=== PATIENT | female | born 1995 | race Caucasian/White ===

== ENCOUNTER 2022-03-14 17:27 | Emergency (ER) | payer OTHER ==
[2022-03-14] MEDS ORDERED: IBUPROFEN 600 MG TAB PO STA (19:13)
--- NOTE | 2022-03-14 19:23 | ED ---
General Adult HPI - General Source: patient, RN notes reviewed, old records reviewed Mode of arrival: ambulatory Limitations: no limitations <Delfino Bocanegra - Last Filed: 03/14/22 20:54> <Carlos Alberto Vasquez - Last Filed: 03/15/22 01:36> - General Chief complaint: Psychiatric Symptoms Stated complaint: Mental health Time Seen by Provider: 03/14/22 19:00 - History of Present Illness Initial comments: This is a 26-year-old female who has a past medical history significant for multiple suicide attempts. Patient states that she has been diagnosed with borderline personality disorder. 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 Patient states she's had taken pills multiple times and once tried to hang herself in the past. Patient does not want to get back to making an attempt. Patient denies any one single thing that pushed her over the edge recently she states is just as dresses all added together. Patient denies any drug use or alcohol use patient denies any physical complaints today except for some mild lower back pain. (Delfino Bocanegra) - Related Data Allergies Allergy/AdvReac Type Severity Reaction Status Date / Time No Known Allergies Allergy Verified 03/14/22 21:15 Review of Systems ROS Other: All systems not noted in ROS Statement are negative. <Delfino Bocanegra - Last Filed: 03/14/22 20:54> ROS Other: All systems not noted in ROS Statement are negative. <Carlos Alberto Vasquez - Last Filed: 03/15/22 01:36> ROS Statement: Those systems with pertinent positive or pertinent negative responses have been documented in the HPI. Past Medical History Past Medical History: No Reported History History of Any Multi-Drug Resistant Organisms: None Reported Past Surgical History: No Surgical Hx Reported Past Psychological History: ADD/ADHD, Panic Disorder Smoking Status: Current every day smoker Past Alcohol Use History: Occasional Past Drug Use History: Marijuana <Delfino Bocanegra - Last Filed: 03/14/22 20:54> General Exam Limitations: no limitations <Delfino Bocanegra - Last Filed: 03/14/22 20:54> - General Exam Comments Initial Comments: GENERAL: Patient is well-developed and well-nourished. Patient is nontoxic and well- hydrated and is in mild distress. ENT: Neck is soft and supple. No significant lymphadenopathy is noted. Oropharynx is clear. Moist mucous membranes. Neck has full range of motion without eliciting any pain. EYES: The sclera were anicteric and conjunctiva were pink and moist. Extraocular movements were intact and pupils were equal round and reactive to light. Eyelids were unremarkable. PULMONARY: Unlabored respirations. Good breath sounds bilaterally. No audible rales rhonchi or wheezing was noted. CARDIOVASCULAR: There is a regular rate and rhythm without any murmurs gallops or rubs. ABDOMEN: Soft and nontender with normal bowel sounds. SKIN: Patient has quite a few areas of excoriation on her face she states she picks at her face when she is extremely stressed NEUROLOGIC: Patient is alert and oriented x3. Cranial nerves II through XII are grossly intact. Motor and sensory are also intact. Normal speech, volume and content. Symmetrical smile. MUSCULOSKELETAL: Normal extremities with adequate strength and full range of motion. LYMPHATICS: No significant lymphadenopathy is noted PSYCHIATRIC: Patient states there on the verge of becoming suicidal though she is not currently. Patient states she cannot handle the stresses in her life currently (Delfino Bocanegra) Course Vital Signs 03/14/22 03/14/22 17:36 19:25 Temperature 98.3 F 98.2 F Pulse Rate 89 89 Respiratory 20 17 Rate Blood Pressure 114/79 115/72 O2 Sat by Pulse 98 95 Oximetry Medical Decision Making <Delfino Bocanegra - Last Filed: 03/14/22 20:54> - Medical Decision Making Dr. Means taking over care of this patient at 9 PM (Delfino Bocanegra) Disposition <Delfino Bocanegra - Last Filed: 03/14/22 20:54> Is patient prescribed a controlled substance at d/c from ED?: No <Carlos Alberto Vasquez - Last Filed: 03/15/22 01:36> Clinical Impression: Mood disorder Disposition: HOME SELF-CARE Condition: Good Instructions (If sedation given, give patient instructions): Mood Disorders (ED) Referrals: Ty Castañeda [Primary Care Provider] - 1-2 days
[2022-03-15 02:47] VITALS: BP 112/73; PULSE 72; RESP 14; TEMP 97.7
== END 2022-03-15 02:13 | disposition home or self-care (01) ==
LOC: EC 17:27
DX: F39 Unspecified mood [affective] disorder (principal); F90.9 Attention-deficit hyperactivity disorder, unspecified type; F17.200 Nicotine dependence, unspecified, uncomplicated; F12.90 Cannabis use, unspecified, uncomplicated
CPT/HCPCS: 82075; 99284

== ENCOUNTER 2022-06-26 09:14 | Emergency (ER) | payer OTHER ==
[2022-06-26 09:18] VITALS: BP 116/87; PULSE 84; RESP 20; TEMP 98
== END 2022-06-26 10:34 | disposition left against medical advice (07) ==
LOC: EC 09:14
DX: Z53.21 Procedure and treatment not carried out due to patient leaving prior to being seen by health care provider (principal)
CPT/HCPCS: 87635; 99499

== ENCOUNTER 2022-09-20 17:27 | Inpatient (IN) | payer OTHER ==
--- NOTE | 2022-09-20 19:12 | ED ---
General Adult HPI <ChristinaCarlos Alberto - Last Filed: 09/21/22 02:18> - General Source: patient, RN notes reviewed, old records reviewed Mode of arrival: ambulatory Limitations: no limitations <Adria Lopez - Last Filed: 09/21/22 23:33> - General Chief complaint: Psychiatric Symptoms Stated complaint: mental health Time Seen by Provider: 09/20/22 18:05 - History of Present Illness Initial comments: Patient is a 26 year old female who presents emergency department complaining of suicidal ideations, plan. She does have a history depression. Is on bupropion. States this is been a recurrent issue but over the last 1-2 weeks it is gotten worse. Denies any worsening stressors. Does endorse suicidal ideations, as well as a plan of possibly overdosing. Denies any attempts. Has been self harming. Has multiple superficial lacerations over the arms and legs. She is up-to-date on tetanus. Denies homicidal ideations, attempts, plans. Denies visual or auditory hallucinations. Denies chest pain, abdominal pain, nausea, vomiting. Denies any shortness breath. His no other acute complaints at this time. Patient presents seeking psychiatric evaluation at this time. (Adria Lopez) - Related Data Home Medications Medication Instructions Recorded Confirmed Dextroamphetamine/Amphetamine 10 mg PO DAILY@1030 03/14/22 06/26/22 [Adderall] Dextroamphetamine/Amphetamine 15 mg PO DAILY@0500 03/14/22 06/26/22 [Adderall] busPIRone HCl [Buspar] 10 mg PO BID 06/26/22 06/26/22 Previous Rx's Medication Instructions Recorded Albuterol Sulfate [Albuterol 1 puff PO Q4-6H #8.5 gm 06/26/22 Sulfate Hfa] Azithromycin [Zithromax] 250 mg PO DIRECTED 5 Days #6 tab 06/26/22 CHLORPHEN-HYDROcod 8-10mg/5ml 5 ml PO Q12HR PRN 3 Days #30 ml 06/26/22 [Tussionex] Allergies Allergy/AdvReac Type Severity Reaction Status Date / Time No Known Allergies Allergy Verified 09/21/22 06:06 Review of Systems ROS Other: All systems not noted in ROS Statement are negative. <Carlos Alberto Vasquez - Last Filed: 09/21/22 02:18> ROS Other: All systems not noted in ROS Statement are negative. <Adria Lopez - Last Filed: 09/21/22 23:33> ROS Statement: Those systems with pertinent positive or pertinent negative responses have been documented in the HPI. Review of Systems: CONST: Denies fever EYES: Denies blurry vision ENT: Denies nasal congestion C/V: Denies Chest pain RESP: Denies shortness of breath GI: Denies abdominal pain : Denies dysuria SKIN: Denies rash. MSK: Denies joint pain. NEURO: Denies headache PSYCH: Denies homicidal ideations/plans/attempts. Denies visual or auditory hallucinations. She endorses suicidal ideation, plan. Denies attempt. Endorses self-harm. (Adria Lopez) Past Medical History Past Medical History: No Reported History History of Any Multi-Drug Resistant Organisms: None Reported Past Surgical History: No Surgical Hx Reported Past Psychological History: ADD/ADHD, Panic Disorder Smoking Status: Current every day smoker Past Alcohol Use History: Occasional Past Drug Use History: Marijuana <Adria Lopez - Last Filed: 09/21/22 23:33> General Exam Limitations: no limitations <Adria Lopez - Last Filed: 09/21/22 23:33> - General Exam Comments Initial Comments: General: Appears in no acute distress. HEAD: Normal with no signs of head trauma. EYES: PERRLA, EOMI, conjunctiva normal, no discharge. ENT: Hearing grossly intact, normal oropharynx. RESPIRATORY: Clear breath sounds bilaterally. No wheezes, rales, or rhonchi. C/V: Regular rate and rhythm. S1 and S2 auscultated, no edema, peripheral pulses 2+ and intact throughout ABD: Abd is soft, nontender, nondistended EXT: Normal range of motion, no obvious deformity SKIN: No rashes or lesions observed on exposed skin. NEURO: Alert and oriented 4. (Adria Lopez) Course Vital Signs 09/20/22 09/21/22 09/21/22 17:39 00:05 02:40 Temperature 98.8 F 98.6 F Pulse Rate 108 H 96 76 Respiratory 18 16 18 Rate Blood Pressure 139/83 100/63 O2 Sat by Pulse 97 100 100 Oximetry Medical Decision Making <Adria Lopez - Last Filed: 11/10/22 23:33> - Medical Decision Making Based on the patient's presentation and physical exam, I do believe the patient requires psychiatric evaluation. Sitter was ordered. Suicide precautions were ordered. She was placed in green scrubs. BAT is 0. UDS is pending. Vital signs within acceptable limits. She is up-to-date on her tetanus. Patient is medically cleared for evaluation by psychiatry. EPS is notified. Disposition is pending psychiatric evaluation. Patient was evaluated by EPS eventually admitted to inpatient psychiatry. (Adria Lopez) - Lab Data Lab Results 09/21/22 09/21/22 09/21/22 Range/Units 00:05 00:05 00:05 Urine Color Yellow Urine Appearance Cloudy H (Clear) Urine pH 6.0 (5.0-8.0) Ur Specific [place] 1.030 (1.001-1.035) Urine Protein 1+ H (Negative) Urine Glucose (UA) Negative (Negative) Urine Ketones 1+ H (Negative) Urine Blood Negative (Negative) Urine Nitrite Positive H (Negative) Urine Bilirubin Negative (Negative) Urine Urobilinogen <2.0 (<2.0) mg/dL Ur Leukocyte Esterase Negative (Negative) Urine RBC 3 (0-5) /hpf Urine WBC 3 (0-5) /hpf Ur Squamous Epith Cells 24 H (0-4) /hpf Urine Bacteria Moderate H (None) /hpf Urine Mucus Many H (None) /hpf Urine HCG, Qual Not Detected (Not Detectd) Urine Opiates Screen Not Detected (NotDetected) Ur Oxycodone Screen Not Detected (NotDetected) Urine Methadone Screen Not Detected (NotDetected) Ur Propoxyphene Screen Not Detected (NotDetected) Ur Barbiturates Screen Not Detected (NotDetected) U Tricyclic Antidepress Not Detected (NotDetected) Ur Phencyclidine Scrn Not Detected (NotDetected) Ur Amphetamines Screen Not Detected (NotDetected) U Methamphetamines Scrn Not Detected (NotDetected) U Benzodiazepines Scrn Not Detected (NotDetected) Urine Cocaine Screen Not Detected (NotDetected) U Marijuana (THC) Screen Detected H (NotDetected) Coronavirus (PCR) (Not Detectd) 09/21/22 Range/Units 02:40 Urine Color Urine Appearance (Clear) Urine pH (5.0-8.0) Ur Specific [place] (1.001-1.035) Urine Protein (Negative) Urine Glucose (UA) (Negative) Urine Ketones (Negative) Urine Blood (Negative) Urine Nitrite (Negative) Urine Bilirubin (Negative) Urine Urobilinogen (<2.0) mg/dL Ur Leukocyte Esterase (Negative) Urine RBC (0-5) /hpf Urine WBC (0-5) /hpf Ur Squamous Epith Cells (0-4) /hpf Urine Bacteria (None) /hpf Urine Mucus (None) /hpf Urine HCG, Qual (Not Detectd) Urine Opiates Screen (NotDetected) Ur Oxycodone Screen (NotDetected) Urine Methadone Screen (NotDetected) Ur Propoxyphene Screen (NotDetected) Ur Barbiturates Screen (NotDetected) U Tricyclic Antidepress (NotDetected) Ur Phencyclidine Scrn (NotDetected) Ur Amphetamines Screen (NotDetected) U Methamphetamines Scrn (NotDetected) U Benzodiazepines Scrn (NotDetected) Urine Cocaine Screen (NotDetected) U Marijuana (THC) Screen (NotDetected) Coronavirus (PCR) Not Detected (Not Detectd) Disposition Is patient prescribed a controlled substance at d/c from ED?: No <Carlos Alberto Vasquez - Last Filed: 09/21/22 02:18> <Adria Lopez - Last Filed: 09/21/22 23:33> Clinical Impression: Mood disorder Disposition: ADMITTED IP TO THIS [facility] Condition: Fair
[2022-09-21 01:19] LABS: Amphetamine Screen,Urine Not Detected (NotDetected); Barbiturate Screen,Urine Not Detected (NotDetected); Benzodiazepines Screen,Urine Not Detected (NotDetected); Cocaine Screen,Urine Not Detected (NotDetected); Methadone Screen, Urine Not Detected (NotDetected); Opiate Screen,Urine Not Detected (NotDetected); Oxycodone Screen, Urine Not Detected (NotDetected); Phencyclidine Screen,Urine Not Detected (NotDetected); Tricyclic Antidepressant,Urine Not Detected (NotDetected); Urn Cannabinoid Scrn Detected (NotDetected)
[2022-09-21] MEDS ORDERED: MAGNESIUM HYDROXIDE 2,400 MG/10 ML CUP PO PRN (03:49)
[2022-09-21] MEDS ORDERED: MAG HYDROX/AL HYDROX/SIMETH 30 ML CUP PO PRN (03:49)
[2022-09-21] MEDS ORDERED: ACETAMINOPHEN TAB 325 MG TAB PO PRN (03:49)
[2022-09-21] MEDS ORDERED: LORazepam 1 MG TAB PO PRN (03:49)
[2022-09-21] MEDS ORDERED: HALOPERIDOL LACTATE 5 MG/ML 1 ML VIAL IM PRN (03:49)
[2022-09-21] MEDS ORDERED: ALBUTEROL HFA INHALER INHALATION PRN (03:52)
[2022-09-21 04:09] LABS: Appearance,Urine Cloudy (Clear); Bacteria,Urine Moderate /hpf; Bilirubin,Urine Negative (Negative); Blood,Urine Negative (Negative); Color,Urine Yellow; Glucose,Urine (UA) Negative (Negative); Ketones,Urine 1+ (Negative); Leukocyte Esterase,Urine Negative (Negative); Mucus,Urine Many /hpf; Nitrite,Urine Positive (Negative); Protein,Urine 1+ (Negative); RBC,Urine 3 /hpf (0-5); Squamous Epithelial Cell,Urine 24 /hpf (0-4); Urobilinogen,Urine <2.0 mg/dL (<2.0); WBC,Urine 3 /hpf (0-5)
[2022-09-21] MEDS ORDERED: LORazepam 1 MG/0.5 ML VIAL IM PRN (06:01)
[2022-09-21] MEDS ORDERED: haloperidoL 5 MG TAB PO PRN (06:02)
[2022-09-21] MEDS ORDERED: hydrOXYzine pamoate 25 MG CAP PO PRN (11:57)
[2022-09-21] MEDS: LITHIUM CARBONATE 300 MG CAP PO SCH ×2 (12:03→21:00)
[2022-09-21] MEDS: NICOTINE 7MG/24HR PATCH TRANSDERM SCH (12:04)
--- NOTE | 2022-09-21 12:37 | P.HP ---
Psychiatric H&P - . H&P Date: 09/21/22 History & Physical: Allergies Allergy/AdvReac Type Severity Reaction Status Date / Time No Known Allergies Allergy Verified 09/21/22 06:06 Vital Signs Temp 98.3 F 09/21/22 05:27 Pulse 74 09/21/22 05:27 Resp 18 09/21/22 05:27 BP 126/67 09/21/22 05:27 Pulse Ox 96 09/21/22 05:27 FiO2 Intake & Output 09/20/22 09/21/22 09/21/22 18:59 06:59 18:59 Weight 59.421 kg 58.06 kg Laboratory Last Values Urine Color Yellow 09/21/22 00:05 Urine Appearance Cloudy (Clear) H 09/21/22 00:05 Urine pH 6.0 (5.0-8.0) 09/21/22 00:05 Ur Specific [place] 1.030 (1.001-1.035) 09/21/22 00:05 Urine Protein 1+ (Negative) H 09/21/22 00:05 Urine Glucose (UA) Negative (Negative) 09/21/22 00:05 Urine Ketones 1+ (Negative) H 09/21/22 00:05 Urine Blood Negative (Negative) 09/21/22 00:05 Urine Nitrite Positive (Negative) H 09/21/22 00:05 Urine Bilirubin Negative (Negative) 09/21/22 00:05 Urine Urobilinogen <2.0 mg/dL (<2.0) 09/21/22 00:05 Ur Leukocyte Esterase Negative (Negative) 09/21/22 00:05 Urine RBC 3 /hpf (0-5) 09/21/22 00:05 Urine WBC 3 /hpf (0-5) 09/21/22 00:05 Ur Squamous Epith Cells 24 /hpf (0-4) H 09/21/22 00:05 Urine Bacteria Moderate /hpf (None) H 09/21/22 00:05 Urine Mucus Many /hpf (None) H 09/21/22 00:05 Urine HCG, Qual Not Detected (Not Detectd) 09/21/22 00:05 Urine Opiates Screen Not Detected (NotDetected) 09/21/22 00:05 Ur Oxycodone Screen Not Detected (NotDetected) 09/21/22 00:05 Urine Methadone Screen Not Detected (NotDetected) 09/21/22 00:05 Ur Propoxyphene Screen Not Detected (NotDetected) 09/21/22 00:05 Ur Barbiturates Screen Not Detected (NotDetected) 09/21/22 00:05 U Tricyclic Antidepress Not Detected (NotDetected) 09/21/22 00:05 Ur Phencyclidine Scrn Not Detected (NotDetected) 09/21/22 00:05 Ur Amphetamines Screen Not Detected (NotDetected) 09/21/22 00:05 U Methamphetamines Scrn Not Detected (NotDetected) 09/21/22 00:05 U Benzodiazepines Scrn Not Detected (NotDetected) 09/21/22 00:05 Urine Cocaine Screen Not Detected (NotDetected) 09/21/22 00:05 U Marijuana (THC) Screen Detected (NotDetected) H 09/21/22 00:05 Coronavirus (PCR) Not Detected (Not Detectd) 09/21/22 02:40 09/21/22 12:31 IDENTIFYING DATA: Patient is a 26-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 HPI: Patient presented to the hospital yesterday complaining of suicidal ideations with plans of possibly overdosing. Patient also claimed in the ER that she is going to press for the past 1 or 2 weeks and also endorsing significant stressors and having lacerations over her legs and also her arms and history of self harming. Patient's UDS positive for THC. Patient has been depressed for the past couple of weeks. She states that she "stopped existing" and described anhedonia, a motivation. She also describes poor energy. Claims that she is also feeling overwhelmed. States that she has a history of having mood swings and explained having "highs" and described manic like features where she has a lot of energy with decreased need for sleep and wanting to go out all the time. She states that she frequently then crashes into a depressed mood. She states that she has had some stressors since moving to [place] last October. Claims that she has been into a few bad relationships. Claims that she has been difficulty finding hours with her job and also poor finances. Claims that she has significant anxiety during the day. She says she is still having suicidal thoughts, no intent or plan. Describes not having any homicidal ideations. Claims that her sleep and appetite have been "on and off". At this time patient denies any auditory or visual hallucinations. Patient denies any current flight of ideas racing thoughts and increased in goal directed behavior. Patient admits to using cannabis heavy doses frequently/daily, cigarettes daily, alcohol, binge episodes at times on weekends. PAST PSYCHIATRIC HISTORY: Patient states that she has a history of bipolar disorder and borderline personality disorder. She also states that she does have a history of ADHD. And claims that she has been on different medications in the past including BuSpar, Wellbutrin, Adderall. She states that she has been hospitalized psychiatrically several times in the past approximately 14 or 15 times in different states. Patient denies any psychiatric outpatient follow- up. He claims that she has had several suicide attempts in the past however did not describe what she has done. PMH:denies ALLERGIES: as per EMR CHEMICAL DEPENDENCY HISTORY: as per HPI FAMILY PSYCHIATRIC/SUBSTANCE USE HISTORY: Claims that there is significant bipolar disorder in her family SOCIAL HISTORY: Patient was born and raised in [facility]. She states that she was "raised all over in a family". States that her parents currently live in [place]. She states that she moved to [place] about a year ago. Claims that she completed high school. Denies any legal history. Does not have any kids. Lives alone in a house. She works as a cleaning lady.. MENTAL STATUS EXAM: General Appearance: Patient appears to be then, has very short hair, glasses, acne, stated age is alert, directable, and attempts to cooperate. Patient appears to have poor hygiene and grooming. She has several abrasions and lacerations over her legs and her arms. Behavior: Patient is seated without any agitated behavior. Speech: Patient's speech is fluent and nonpressured. Mood/Affect: Patient reports their mood is depressed and anxious, affect is congruent and constricted. Suicidality/Homicidality: Patient denies having any homicidal ideation intent or plan. [Described having suicidal thoughts, no intent or plan. Perceptions: Patient denies any visual hallucinations and denies any auditory hallucinations Though content/process: There is no evidence of any delusional thought content and thought process is linear and goal-directed. Rambles at times. Memory and concentration: AOX3, grossly intact for the purposes of this session. Can spell "WORLD" backwards Judgment and insight: poor STRENGTHS/WEAKNESSES: strength is that patient is resilient. Weakness is that patient has poor judgment and is impulsive INTELLECT: average IMPRESSIONS: Bipolar disorder, current episode depressed Borderline personality disorder Cannabis use disorder, severe Alcohol use disorder mild Nicotine dependence PLAN: -Patient is admitted under voluntary status to [facility] for stabilization of psychiatric symptoms and safety. Patient has signed adult voluntary form and medication consent and is placed in patient's chart. -Medications : Will start patient on lithium 300 mg twice a day for mood stabilization/suicidal thoughts. Trazodone 50 mg daily at bedtime for mood/insomnia. Vistaril by mouth when necessary for anxiety. -Ativan and Haldol PRN for agitation/aggression -Patient was counselled on substance abuse and desired to cut back on use -Patient was informed of the risks, benefits and side effects of the medication and patient verbally consented to taking the medications. Patient signed med consent form and was placed in chart. -Internal Medicine consult to perform medical evaluation and physical. -NRT - nicotine patch -SW on board for discharge planning. Encourage patient to participate in groups to work on coping skills.
[2022-09-21] MEDS: traZODone HCL 50 MG TAB PO SCH (21:00)
[2022-09-22 07:59] LABS: Basophils % (A) 0 %; Eosinophils # (A) 0.2 k/uL (0-0.7); Eosinophils % (A) 3 %; HCT 42.7 % (34.0-46.0); HGB 14.4 gm/dL (11.4-16.0); Lymphocytes # (A) 2.2 k/uL (1.0-4.8); Lymphocytes % (A) 28 %; MCH 31.5 pg (25.0-35.0); MCHC 33.6 g/dL (31.0-37.0); MCV 93.6 fL (80.0-100.0); Mean Platelet Volume 7.6; Monocytes # (A) 0.3 k/uL (0-1.0); Monocytes % (A) 4 %; Neutrophils # (A) 4.8 k/uL (1.3-7.7); Neutrophils % (A) 63 %; Platelet Count 337 k/uL (150-450); RBC 4.56 m/uL (3.80-5.40); RDW 12.7 % (11.5-15.5); WBC 7.7 k/uL (3.8-10.6)
[2022-09-22 08:10] LABS: ALT 21 U/L (4-34); AST 18 U/L (14-36); African American GFR (CKD) >90 (>60 ml/min/1.73 sqM); Albumin 4.7 g/dL (3.5-5.0); Alkaline Phosphatase 71 U/L (38-126); Anion Gap 9 mmol/L; Bilirubin, Delta 0.3 mg/dL (0.0-0.2); Bilirubin,Unconjugated 0.4 mg/dL (0.0-1.1); Blood Urea Nitrogen 9 mg/dL (7-17); Calcium 9.6 mg/dL (8.4-10.2); Carbon Dioxide 26 mmol/L (22-30); Chloride 104 mmol/L (98-107); Glucose 78 mg/dL (74-99); Non-African American GFR(CKD) >90 (>60 ml/min/1.73 sqM); Potassium 4.6 mmol/L (3.5-5.1); Sodium 139 mmol/L (137-145); Total Bilirubin 0.7 mg/dL (0.2-1.3); Total Protein 7.4 g/dL (6.3-8.2)
[2022-09-22] MEDS: NICOTINE 7MG/24HR PATCH TRANSDERM SCH (08:41)
[2022-09-22] MEDS: LITHIUM CARBONATE 300 MG CAP PO SCH ×2 (08:41→20:16)
[2022-09-22] MEDS ORDERED: ONDANSETRON 4 MG TAB PO PRN (09:52)
--- NOTE | 2022-09-22 09:56 | P.PN ---
Progress Note - Text Progress Note Date: 09/22/22 Interval History: Patient was seen sitting in on group today and was directable and agreeable to speak with public relations writer in the office. Patient appears to have a brighter affect today. She states that she feels "a bit better" with regards to her mood. She is denying any mood swings at this time. States that she is feeling less depressed and also mild improvement in her anxiety. She does state that she does feel "mildly nauseous" at times during the day. We spoke more about her medications which she is agreeable to continuing taking. We'll check a lithium level on Sunday. She claims that she slept quite a bit during the day yesterday and also broken up at nighttime wants to remain on the trazodone. At this time patient denies any suicidal or homical ideations, intent or plan. Patient denies any auditory, visual hallucinations and denies any paranoia or delusions. Patient denies any side effects from the medications and has been compliant with meds. Mental Status Exam: General Appearance: Patient appears to be then, has very short hair, glasses, acne, stated age is alert, directable, and attempts to cooperate. Patient appears to have improving hygiene and grooming. She has several abrasions and lacerations over her legs and her arms. Behavior: Patient is seated without any agitated behavior. Speech: Patient's speech is fluent and nonpressured. Mood/Affect: Patient reports their mood is depressed and anxious, affect is congruent and constricted. Suicidality/Homicidality: Patient denies having any homicidal ideation intent or plan. Denies having suicidal thoughts, no intent or plan. Perceptions: Patient denies any visual hallucinations and denies any auditory hallucinations Though content/process: There is no evidence of any delusional thought content and thought process is linear and goal-directed. Rambles at times. Memory and concentration: AOX3, grossly intact for the purposes of this session Judgment and insight: poor, improving moderately IMPRESSIONS: Bipolar disorder, current episode depressed Borderline personality disorder Cannabis use disorder, severe Alcohol use disorder mild Nicotine dependence Plan: -Patient continues to meet criteria for inpatient psychiatric admission for symptom stabilization and safety. Patient has signed adult voluntary form and medication consent and was placed in patient's chart. -Medications: Continue lithium 300 mg twice a day for mood stabilization/suicidal thoughts. Trazodone 50 mg daily at bedtime for mo od/insomnia. Vistaril by mouth when necessary for anxiety. Added Zofran when necessary for nausea. -When necessary Ativan and Haldol for agitation/aggression. -NRT - nicotine patch -SW on board for discharge planning. Encouraged the patient to participate in milieu. will check lithium level sunday and likely discharge either sunday vs sunday.
[2022-09-22 14:47] LABS: Chol/HDL Ratio 2.54 Ratio; LDL Cholesterol,Calculated 62.6 mg/dL (0.0-131.0); VLDL Calculation 16.32 mg/dL (5.00-40.00)
[2022-09-22] MEDS: traZODone HCL 50 MG TAB PO SCH (20:16)
[2022-09-23] MEDS: NICOTINE 7MG/24HR PATCH TRANSDERM SCH (08:57)
[2022-09-23] MEDS: LITHIUM CARBONATE 300 MG CAP PO SCH ×2 (08:57→20:37)
[2022-09-23] MEDS: traZODone HCL 50 MG TAB PO SCH (20:37)
--- NOTE | 2022-09-23 23:15 | P.PN ---
Progress Note - Text Progress Note Date: 09/23/22 Interval history: Patient was seen eating her snack and was directable and agreeable to speak with sign writer letterer or painter. She reports mixed emotions of anxiety and depression, mood had been up and down today, and shows me that she self-harmed by cutting herself with a piece of plastic, has 3 new superficial scratches on her left forearm and has multiple nail bateman on her right arm. She reports the unit has been loud due to influx of more patients today and this has been distressing for her today. At this time, patient endorses suicidal thoughts with no specific plan, and denies homicidal ideation, intent or plan. Denies any auditory or visual hallucinations. Patient denies any side effects from the medications and has been compliant with meds. She has a long history of trauma, and has fair sleep. She has been on Seroquel previously and reports she felt worse on this and overdosed on it several years ago. Mental status exam: General Appearance: Patient appears to be stated age, slender, has multiple excoriation bateman on face, scratches/superficial cuts on left forearm, and nail bateman on right arm. Behavior: No agitated behavior. Reports she self-harmed today as described above. Speech: Patient's speech is fluent and non-pressured. Mood/Affect: Mood is "up and down", affect is congruent and labile. Suicidality/Homicidality: Patient endorses SI today, but denies homicidal ideation intent or plan. Perceptions: Patient denies any auditory or visual hallucinations. Though content/process: There is no evidence of any delusional thought content and thought process is linear and goal-directed. Memory and concentration: AOX3, grossly intact for the purposes of this session Judgment and insight: poor, improving mildly Assessment/Plan: Continue with current diagnosis. Patient continues to meet criteria for inpatient psychiatric admission for symptom stabilization and safety. Patient will be maintained on current psychotropic medication regimen. She has tried several meds in the past with side effects. She prefers to keep meds the same for today and we will discuss again tomorrow. Monitor for medication compliance and for any psychotropic medication side effects. Will continue to monitor ongoing response to treatment. Encouraged participation in milieu.
[2022-09-24] MEDS: LITHIUM CARBONATE 300 MG CAP PO SCH ×2 (08:41→21:16)
[2022-09-24] MEDS: NICOTINE 7MG/24HR PATCH TRANSDERM SCH (09:36)
[2022-09-24] MEDS: LURASIDONE 20 MG TAB PO SCH (18:49)
[2022-09-24] MEDS: traZODone HCL 50 MG TAB PO SCH (21:16)
--- NOTE | 2022-09-24 21:25 | P.PN ---
Progress Note - Text Progress Note Date: 09/24/22 Interval history: Patient was seen attending group and was directable and agreeable to speak with senior underwriter. She reports her mood is somewhat better today since the unit is not as 'chaotic' as it was yesterday. She reports having mood swings, fair sleep with nighttime awakenings and difficulty returning to sleep. She reports feelings of 'panic' and has a long history of chilhood trauma. She also reports a history of "bulimia and anorexia" in her teens and does not want to take medications that would cause weight gain. We discussed her medications and other medication options for mood stabilization, and she agrees to start Latuda for mood. At this time, patient denies suicidal or homicidal ideation, intent or plan. Denies any auditory or visual hallucinations. Patient denies any side effects from the medications and has been compliant with meds. Mental status exam: General Appearance: Patient appears to be stated age, slender, has multiple excoriation bateman on face, scratches/superficial cuts on left forearm, and nail bateman on right arm. Behavior: No agitated behavior. Speech: Patient's speech is fluent and non-pressured. Mood/Affect: Mood is improving mildly, affect is congruent and labile. Suicidality/Homicidality: Patient denies suicidal and homicidal ideation, intent or plan. Perceptions: Patient denies any auditory or visual hallucinations. Though content/process: There is no evidence of any delusional thought content and thought process is linear and goal-directed. Memory and concentration: AOX3, grossly intact for the purposes of this session Judgment and insight: poor, improving mildly Assessment/Plan: Continue with current diagnosis. Patient continues to meet criteria for inpatient psychiatric admission for symptom stabilization and safety. Start Latuda 20 mg daily with supper for mood stabilization, with plan to gradually increase as tolerated. Monitor for medication compliance and for any psychotropic medication side effects. Will continue to monitor ongoing response to treatment. Encouraged participation in milieu.
[2022-09-25] MEDS: LITHIUM CARBONATE 300 MG CAP PO SCH ×2 (08:41→21:09)
[2022-09-25] MEDS: NICOTINE 7MG/24HR PATCH TRANSDERM SCH (08:41)
--- NOTE | 2022-09-25 13:50 | P.PN ---
Progress Note - Text Progress Note Date: 09/25/22 Interval history: Patient was seen sitting in her room today and was directable and agreeable to speak with clinical writer. Patient claims that she is doing a bit better today with regards to her mood however states that she does feel anxious during the day. Claims that she did take an Ativan over the weekend which helped. She states that she feels uncomfortable with some patients on the unit when they are yelling and fighting. She states that she is feeling more optimistic at this time and mood has been improving. Claims that she has been trying to go to groups and participate his mother so she can. States that her mood is becoming more stable at this time. We spoke about her lithium level. At this time, patient denies suicidal or homicidal ideation, intent or plan. Denies any auditory or visual hallucinations. Patient denies any side effects from the medications and has been compliant with meds. Mental status exam: General Appearance: Patient appears to be stated age, slender, has multiple excoriation bateman on face, scratches/superficial cuts on left forearm, and nail bateman on right arm. Behavior: No agitated behavior. Cooperative. Speech: Patient's speech is fluent and non-pressured. Mood/Affect: Mood is improving mildly, affect is congruent Suicidality/Homicidality: Patient denies suicidal and homicidal ideation, intent or plan. Perceptions: Patient denies any auditory or visual hallucinations. Though content/process: There is no evidence of any delusional thought content and thought process is linear and goal-directed. Memory and concentration: AOX3, grossly intact for the purposes of this session Judgment and insight: improving mildly Assessment/Plan: Continue with current diagnosis. Patient continues to meet criteria for inpatient psychiatric admission for symptom stabilization and safety. Continue with Latuda 20 mg daily with supper for mood stabilization. increase trazodone to 100 mg qhs for insomnia/ mood. Continue with lithium 300 milligrams twice a day for mood stabilization/suicidal thoughts. Vistaril when necessary for anxiety. Monitor for medication compliance and for any psychotropic medication side effects. Will continue to monitor ongoing response to treatment. Encouraged participation in milieu. Likely discharge back home tomorrow.
[2022-09-25] MEDS: LURASIDONE 20 MG TAB PO SCH (17:15)
[2022-09-25] MEDS ORDERED: traZODone HCL 100 MG TAB PO SCH (21:00)
[2022-09-26 06:29] VITALS: BP 106/57; PULSE 86; RESP 17; TEMP 97.5
[2022-09-26] MEDS: LITHIUM CARBONATE 300 MG CAP PO SCH (09:09)
--- NOTE | 2022-09-26 09:45 | P.DS ---
Providers Date of admission: 09/21/22 03:25 Expected date of discharge: 09/26/22 Attending physician: Renan Le MD Consults: 09/21/22 03:49 Consult Physician Routine Consulting Provider: Javier Black Consult Reason/Comments: For H & P for Medical Follow Up Do you want consulting provider notified?: Yes Primary care physician: Stated None - Discharge Diagnosis(es) (1) Bipolar disorder current episode depressed Current Visit: Yes Status: Acute Priority: High (2) Borderline personality disorder Current Visit: Yes Status: Acute Priority: Medium (3) Cannabis use disorder, severe, dependence Current Visit: Yes Status: Acute Priority: Medium (4) Alcohol use disorder, mild, abuse Current Visit: Yes Status: Acute Priority: Low (5) Nicotine dependence Current Visit: Yes Status: Acute Priority: Low Hospital Course: Admission HPI: Admission note was completed by content writer "Patient is a 26-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 Patient presented to the hospital yesterday complaining of suicidal ideations with plans of possibly overdosing. Patient also claimed in the ER that she is going to press for the past 1 or 2 weeks and also endorsing significant stressors and having lacerations over her legs and also her arms and history of self harming. Patient's UDS positive for THC. Patient has been depressed for the past couple of weeks. She states that she "stopped existing" and described anhedonia, a motivation. She also describes poor energy. Claims that she is also feeling overwhelmed. States that she has a history of having mood swings and explained having "highs" and described manic like features where she has a lot of energy with decreased need for sleep and wanting to go out all the time. She states that she frequently then crashes into a depressed mood. She states that she has had some stressors since moving to [place] last October. Claims that she has been into a few bad relationships. Claims that she has been difficulty finding hours with her job and also poor finances. Claims that she has significant anxiety during the day. She says she is still having suicidal thoughts, no intent or plan. Describes not having any homicidal ideations. Claims that her sleep and appetite have been "on and off". At this time patient denies any auditory or visual hallucinations. Patient denies any current flight of ideas racing thoughts and increased in goal directed behavior. Patient admits to using cannabis heavy doses frequently/daily, cigarettes daily, alcohol, binge episodes at times on weekends." Hospital course: Upon admission to the unit patient was directable and agreeable to commence treatment and signed adult voluntary form. Patient got along well with other patients on the unit and followed unit protocol. Patient was compliant with the medications and denied any side effects throughout hospital course. Patient was started on latuda 20 mg with dinner for mood stabilization/depression, lithium 300 mg bid for mood stabilization, trazodone 100 mg daily at bedtime for insomnia/mood, Vistaril when necessary for anxiety. Patient spoke of her stressors and engaged in therapy both group and individual. Patient was also seen by medical team for history and physical exam. Patient had a lithium level drawn on 09/25 - 0.9. Throughout the course of the hospitalization patient gradually improved with regards to mood stabilization, anxiety, suicidal thoughts, sleep and became more future oriented with improved insight and judgment. On the day of discharge patient denied any suicidal or homicidal ideations intent or plan denied any auditory or visual hallucinations. Patient endorsed wanting to live for her health and her future. The patient denied any access to guns or weapons. Patient denied any paranoia and did not endorse any delusions. Patient does have a significant history of substance abuse and was counseled on abstaining from all substances including alcohol and marijuana. Patient was offered however declined inpatient substance-abuse rehab. Patient was also counseled on the medications and need for regular compliance and was encouraged to follow-up with their outpatient appointment for mental health and also for primary care. Prior to discharge a family meeting will be arranged by psychosocial rehabilitation counselor to answer any questions and ensure safety upon discharge. Mental status exam: General Appearance: Patient appears to be thin, short hair, wearing glasses, stated age is alert, pleasant, and cooperative. Patient is in no acute distress and has improved hygiene and grooming Behavior: Patient is calmly seated without any agitated behavior. Speech: Patient's speech is fluent and nonpressured. Mood/Affect: Patient reports their mood is "better", affect is congruent and euthymic. Suicidality/Homicidality: Patient denies having any suicidal or homicidal ideation intent or plan. Perceptions: Patient denies any auditory or visual hallucinations. Though content/process: There is no evidence of any delusional thought content and thought process is linear and goal-directed. more future oriented Memory and concentration: AOX3, grossly intact for the purposes of this session. Can spell "WORLD" backwards correctly. Judgment and insight: improved with guarded prognosis Impression: Bipolar disorder, current episode depressed Borderline personality disorder Cannabis use disorder severe Alcohol use disorder mild Nicotine dependence Plan: -Continue with discharge today as patient has improved and stabilized psychiatrically and is not currently an imminent threat to herself and/or others. Patient will remain at chronically elevated risk for harm to self and/or others due to her impulsivity and substance abuse. -Continue medications: [id number] mg with dinner for mood stabilization/depression, trazodone 100 mg daily at bedtime for insomnia/mood, lithium 300 mg twice a day for mood stabilization/suicidal thoughts, Vistaril when necessary for anxiety. -Patient was counseled on the need for medication compliance and appropriate follow-up at mental health and also primary care for medical issues. Patient verbalized understanding and agreed. -Social work to arrange for and conduct family meeting to ensure safety upon discharge and answer any questions/concerns. Social work also to arrange for patients follow up appointments for psychiatric care along with follow up with primary care provider. -Patient counseled on abstaining from recreational drugs and marijuana and alcohol. Was informed/educated on the adverse effects on their physical and mental health. Patient verbally agreed and understood. Patient was offered substance abuse treatment however declined at this time. -Patient was instructed to return to the hospital or seek immediate medical care if their psychiatric or medical symptoms do worsen or reoccur. Allergies Allergy/AdvReac Type Severity Reaction Status Date / Time No Known Allergies Allergy Verified 09/21/22 06:06 Laboratory Results WBC 7.7 k/uL (3.8-10.6) 09/22/22 07:44 RBC 4.56 m/uL (3.80-5.40) 09/22/22 07:44 Hgb 14.4 gm/dL (11.4-16.0) 09/22/22 07:44 Hct 42.7 % (34.0-46.0) 09/22/22 07:44 MCV 93.6 fL (80.0-100.0) 09/22/22 07:44 MCH 31.5 pg (25.0-35.0) 09/22/22 07:44 MCHC 33.6 g/dL (31.0-37.0) 09/22/22 07:44 RDW 12.7 % (11.5-15.5) 09/22/22 07:44 Plt Count 337 k/uL (150-450) 09/22/22 07:44 MPV 7.6 09/22/22 07:44 Neutrophils % 63 % 09/22/22 07:44 Lymphocytes % 28 % 09/22/22 07:44 Monocytes % 4 % 09/22/22 07:44 Eosinophils % 3 % 09/22/22 07:44 Basophils % 0 % 09/22/22 07:44 Neutrophils # 4.8 k/uL (1.3-7.7) 09/22/22 07:44 Lymphocytes # 2.2 k/uL (1.0-4.8) 09/22/22 07:44 Monocytes # 0.3 k/uL (0-1.0) 09/22/22 07:44 Eosinophils # 0.2 k/uL (0-0.7) 09/22/22 07:44 Basophils # 0.0 k/uL (0-0.2) 09/22/22 07:44 Sodium 139 mmol/L (137-145) 09/22/22 07:44 Potassium 4.6 mmol/L (3.5-5.1) 09/22/22 07:44 Chloride 104 mmol/L (98-107) 09/22/22 07:44 Carbon Dioxide 26 mmol/L (22-30) 09/22/22 07:44 Anion Gap 9 mmol/L 09/22/22 07:44 BUN 9 mg/dL (7-17) 09/22/22 07:44 Creatinine 0.78 mg/dL (0.52-1.04) 09/22/22 07:44 Est GFR (CKD-EPI)AfAm >90 (>60 ml/min/1.73 sqM) 09/22/22 07:44 Est GFR (CKD-EPI)NonAf >90 (>60 ml/min/1.73 sqM) 09/22/22 07:44 Glucose 78 mg/dL (74-99) 09/22/22 07:[address] Glu mg/dL 103 09/22/22 07:44 Hemoglobin A1c 5.2 % (0.0-6.0) 09/22/22 07:44 Calcium 9.6 mg/dL (8.4-10.2) 09/22/22 07:44 Total Bilirubin 0.7 mg/dL (0.2-1.3) 09/22/22 07:44 Conjugated Bilirubin 0.0 mg/dL (0.0-0.3) 09/22/22 07:44 Unconjugated Bilirubin 0.4 mg/dL (0.0-1.1) 09/22/22 07:44 Delta Bilirubin 0.3 mg/dL (0.0-0.2) H 09/22/22 07:44 AST 18 U/L (14-36) 09/22/22 07:44 ALT 21 U/L (4-34) 09/22/22 07:44 Alkaline Phosphatase 71 U/L (38-126) 09/22/22 07:44 Total Protein 7.4 g/dL (6.3-8.2) 09/22/22 07:44 Albumin 4.7 g/dL (3.5-5.0) 09/22/22 07:44 Triglycerides 81.60 mg/dL (0.00-149.00) 09/22/22 07:44 Cholesterol 130.00 mg/dL (0.00-200.00) 09/22/22 07:44 LDL Cholesterol, Calc 62.6 mg/dL (0.0-131.0) 09/22/22 07:44 VLDL Cholesterol, Calc 16.32 mg/dL (5.00-40.00) 09/22/22 07:44 HDL Cholesterol 51.10 mg/dL (40.00-60.00) 09/22/22 07:44 Cholesterol/HDL Ratio 2.54 Ratio 09/22/22 07:44 TSH 1.340 mIU/L (0.465-4.680) 09/22/22 07:44 Urine Color Yellow 09/21/22 00:05 Urine Appearance Cloudy (Clear) H 09/21/22 00:05 Urine pH 6.0 (5.0-8.0) 09/21/22 00:05 Ur Specific [place] 1.030 (1.001-1.035) 09/21/22 00:05 Urine Protein 1+ (Negative) H 09/21/22 00:05 Urine Glucose (UA) Negative (Negative) 09/21/22 00:05 Urine Ketones 1+ (Negative) H 09/21/22 00:05 Urine Blood Negative (Negative) 09/21/22 00:05 Urine Nitrite Positive (Negative) H 09/21/22 00:05 Urine Bilirubin Negative (Negative) 09/21/22 00:05 Urine Urobilinogen <2.0 mg/dL (<2.0) 09/21/22 00:05 Ur Leukocyte Esterase Negative (Negative) 09/21/22 00:05 Urine RBC 3 /hpf (0-5) 09/21/22 00:05 Urine WBC 3 /hpf (0-5) 09/21/22 00:05 Ur Squamous Epith Cells 24 /hpf (0-4) H 09/21/22 00:05 Urine Bacteria Moderate /hpf (None) H 09/21/22 00:05 Urine Mucus Many /hpf (None) H 09/21/22 00:05 Urine HCG, Qual Not Detected (Not Detectd) 09/21/22 00:05 Urine Opiates Screen Not Detected (NotDetected) 09/21/22 00:05 Ur Oxycodone Screen Not Detected (NotDetected) 09/21/22 00:05 Urine Methadone Screen Not Detected (NotDetected) 09/21/22 00:05 Ur Propoxyphene Screen Not Detected (NotDetected) 09/21/22 00:05 Ur Barbiturates Screen Not Detected (NotDetected) 09/21/22 00:05 U Tricyclic Antidepress Not Detected (NotDetected) 09/21/22 00:05 Ur Phencyclidine Scrn Not Detected (NotDetected) 09/21/22 00:05 Ur Amphetamines Screen Not Detected (NotDetected) 09/21/22 00:05 U Methamphetamines Scrn Not Detected (NotDetected) 09/21/22 00:05 U Benzodiazepines Scrn Not Detected (NotDetected) 09/21/22 00:05 [place] 0.9 mmol/L 09/25/22 11:32 Urine Cocaine Screen Not Detected (NotDetected) 09/21/22 00:05 U Marijuana (THC) Screen Detected (NotDetected) H 09/21/22 00:05 Coronavirus (PCR) Not Detected (Not Detectd) 09/21/22 02:40 Vital Signs Temp 97.5 F L 09/26/22 06:10 Pulse 86 09/26/22 06:10 Resp 17 09/26/22 06:10 BP 106/57 09/26/22 06:10 Pulse Ox 96 09/26/22 06:10 FiO2 Patient Condition at Discharge: Stable Plan - Discharge Summary New Discharge Prescriptions: New traZODone HCL [Desyrel] 100 mg PO HS 30 Days tab Lurasidone [Latuda] 20 mg PO W/SUPPER 30 Days tab [place] Carbonate 300 mg PO BID 30 Days cap Acetaminophen Tab [Tylenol] 650 mg PO Q4HR PRN tab PRN Reason: Pain/Discomfort hydrOXYzine pamoate [Vistaril] 25 mg PO BID PRN 14 Days cap PRN Reason: Anxiety Continue Albuterol Sulfate [Albuterol Sulfate Hfa] 1 puff PO Q4-6H #8.5 gm Discontinued busPIRone HCl [Buspar] 10 mg PO BID Dextroamphetamine/Amphetamine [Adderall] 10 mg PO DAILY@1030 Dextroamphetamine/Amphetamine [Adderall] 15 mg PO DAILY@0500 [place]-HYDROcod 8-10mg/5ml [Tussionex] 5 ml PO Q12HR PRN 3 Days #30 ml PRN Reason: Cough Azithromycin [Zithromax] 250 mg PO DIRECTED 5 Days #6 tab Discharge Medication List Albuterol Sulfate [Albuterol Sulfate Hfa] 1 puff PO Q4-6H #8.5 gm 06/26/22 [Rx] Acetaminophen Tab [Tylenol] 650 mg PO Q4HR PRN tab 09/26/22 [Rx] [place] Carbonate 300 mg PO BID 30 Days cap 09/26/22 [Rx] Lurasidone [Latuda] 20 mg PO W/SUPPER 30 Days tab 09/26/22 [Rx] hydrOXYzine pamoate [Vistaril] 25 mg PO BID PRN 14 Days cap 09/26/22 [Rx] traZODone HCL [Desyrel] 100 mg PO HS 30 Days tab 09/26/22 [Rx] Follow up Appointment(s)/Referral(s): [facility] [Outside] - 1 Week None,Stated [Primary Care Provider] - 1-2 days Activity/Diet/Wound Care/Special Instructions: Avoid the use of street drugs and alcohol. Take all prescriptions as prescribed. When you are in need of refills on your medications, please contact your medical provider and/or outpatient psychiatrist to have this done. Please go to scheduled outpatient appointment for aftercare treatment. If symptoms return or become worse, call the crisis line at and/or go to the nearest emergency room for evaluation. Discharge Disposition: HOME SELF-CARE
== END 2022-09-26 14:09 | disposition home or self-care (01) | DRG 885 ==
LOC: EC 17:27 → 3MHU 09-21 03:25
PROVIDERS: ADMIT Psychiatry & Neurology Psychiatry; ATTEND Psychiatry & Neurology Psychiatry
DX: F31.30 Bipolar disorder, current episode depressed, mild or moderate severity, unspecified (principal); R45.851 Suicidal ideations; Z20.822 Contact with and (suspected) exposure to COVID-19; F17.210 Nicotine dependence, cigarettes, uncomplicated; F12.20 Cannabis dependence, uncomplicated; F10.10 Alcohol abuse, uncomplicated; F60.3 Borderline personality disorder; F41.0 Panic disorder [episodic paroxysmal anxiety]; Z79.899 Other long term (current) drug therapy; G47.00 Insomnia, unspecified; Z86.59 Personal history of other mental and behavioral disorders; Z71.6 Tobacco abuse counseling
CPT/HCPCS: 80053; 80061; 80178; 80306; 81001; 81025; 82075; 82248; 83036; 84443; 85025; 87635; 99285

== ENCOUNTER 2023-07-04 10:50 | Emergency (ER) | payer OTHER ==
[2023-07-04 11:17] VITALS: RESP 18
[2023-07-04] MEDS ORDERED: KETOROLAC 15 MG/ML 1 ML VIAL IM STA (11:17)
--- NOTE | 2023-07-04 11:17 | ED ---
General Adult HPI - General Stated complaint: Back Pain - History of Present Illness Initial comments: 27 year old female present to ED with a chief complaint of back pain. Patient states she was trying to move a mattress approximately an hour ago when she felt a "tear" in her back since then reports pain of the lower back worse with movement. He denies saddle anesthesia. Denies incontinence. Denies any other injury at this time. Denies chest pain shortness of breath. No other complaints. - Related Data Previous Rx's Medication Instructions Recorded Albuterol Sulfate [Albuterol 1 puff PO Q4-6H #8.5 gm 06/26/22 Sulfate Hfa] Acetaminophen Tab [Tylenol] 650 mg PO Q4HR PRN tab 09/26/22 Confluence Carbonate 300 mg PO BID 30 Days cap 09/26/22 Lurasidone [Latuda] 20 mg PO W/SUPPER 30 Days tab 09/26/22 hydrOXYzine pamoate [Vistaril] 25 mg PO BID PRN 14 Days cap 09/26/22 traZODone HCL [Desyrel] 100 mg PO HS 30 Days tab 09/26/22 Baclofen 10 mg PO TID PRN #12 tab 07/04/23 Ibuprofen [Motrin] 600 mg PO Q8HR PRN #30 tab 07/04/23 Allergies Allergy/AdvReac Type Severity Reaction Status Date / Time No Known Allergies Allergy Verified 07/04/23 11:17 Review of Systems ROS Statement: Those systems with pertinent positive or pertinent negative responses have been documented in the HPI. ROS Other: All systems not noted in ROS Statement are negative. Past Medical History Past Medical History: No Reported History History of Any Multi-Drug Resistant Organisms: None Reported Past Surgical History: No Surgical Hx Reported Past Anesthesia/Blood Transfusion Reactions: No Reported Reaction Past Psychological History: ADD/ADHD, Panic Disorder Smoking Status: Current every day smoker Past Alcohol Use History: Occasional Past Drug Use History: Marijuana General Exam Limitations: no limitations General appearance: alert, in no apparent distress Head exam: Present: atraumatic, normocephalic ENT exam: Present: mucous membranes moist Neck exam: Present: normal inspection, other (No Midline cervical spinal tenderness to palpation.) Respiratory exam: Present: normal lung sounds bilaterally Cardiovascular Exam: Present: regular rate, normal rhythm GI/Abdominal exam: Present: soft (Nontender. No rebound guarding or rigidity.) Extremities exam: Present: normal inspection, other (Strength and Sensation of bilateral lower extremities equal and intact. DP/PT pulses 2+.) Back exam: Present: other (No midline thoracic or lumbar spinal tenderness to palpation. Lower lumbar Paraspinal tenderness to palpation.) Neurological exam: Present: alert, oriented X3 Skin exam: Present: warm, dry Course Vital Signs 07/04/23 11:14 Temperature 98.1 F Pulse Rate 81 Respiratory 18 Rate Blood Pressure 108/67 O2 Sat by Pulse 98 Oximetry Medical Decision Making - Medical Decision Making Was pt. sent in by a medical professional or institution (, PA, HEALTH TECHNICIAN, urgent care, hospital, or [facility]...) When possible be specific @ -No Did you speak to anyone other than the patient for history (EMS, parent, family, police, friend...)? What history was obtained from this source @ -No Did you review nursing and triage notes (agree or disagree)? Why? @ -I reviewed and agree with nursing and triage notes Were old charts reviewed (outside hosp., previous admission, EMS record, old EKG, old radiological studies, urgent care reports/EKG's, [facility] records)? Report findings @ -No old charts were reviewed Differential Diagnosis (chest pain, altered mental status, abdominal pain women, abdominal pain men, vaginal bleeding, weakness, fever, dyspnea, syncope, headache, dizziness, GI bleed, back pain, seizure, CVA, palpatations, mental health, musculoskeletal)? @ -Differential Back Pain: Strain, zoster, cauda equina syndrome, epidural abscess, vertebral osteomyelitis, discitis, fracture, subluxation, disc herniation, DJD, spinal stenosis, dissection, AAA, pancreatitis, peptic ulcer disease, pyelonephritis, kidney stone, this is not meant to be an all-inclusive list. EKG interpreted by me (3pts min.). @ -None X-rays interpreted by me (1pt min.). @ -X-ray interpreted by me. X-ray of the lumbar spine show no acute findings. CT interpreted by me (1pt min.). @ -None done U/S interpreted by me (1pt. min.). @ -None done What testing was considered but not performed or refused? (CT, X-rays, U/S, labs)? Why? @ -None What meds were considered but not given or refused? Why? @ -None Did you discuss the management of the patient with other professionals (professionals i.e. , PA, HEALTH TECHNICIAN, lab, RT, psych nurse, social human services assistants, striker off, teacher, audit officer, comp field case manager)? Give summary @ -No Was smoking cessation discussed for >3mins.? @ -No Was critical care preformed (if so, how long)? @ -No Were there social determinants of health that impacted care today? How? (Homelessness, low income, unemployed, alcoholism, drug addiction, transportation, low edu. Level, literacy, decrease access to med. care, alf, re hab)? @ -No Was there de-escalation of care discussed even if they declined (Discuss DNR or withdrawal of care, Hospice)? DNR status @ -No What co-morbidities impacted this encounter? (DM, HTN, Smoking, COPD, CAD, Cancer, CVA, ARF, Chemo, Hep., AIDS, mental health diagnosis, sleep apnea, morbid obesity)? @ -None Was patient admitted / discharged? Hospital course, mention meds given and route, prescriptions, significant lab abnormalities, going to OR and other pertinent info. @ -Discharge. Imaging shows no acute findings. Patient had significant improvement of pain with Toradol and Norflex here. Symptoms likely musculoskeletal in nature. Patient discharged home with prescription for ibuprofen and baclofen. Advised follow-up with PCP. Discharged home in stable condition. Discussed return precautions patient verbalizes agreement. Undiagnosed new problem with uncertain prognosis? @ -No Drug Therapy requiring intensive monitoring for toxicity (Heparin, Nitro, Insulin, Cardizem)? @ -No Were any procedures done? @ -No Diagnosis/symptom? @ -Back pain Acute, or Chronic, or Acute on Chronic? @ -Acute Uncomplicated (without systemic symptoms) or Complicated (systemic symptoms)? @ -Uncomplicated Side effects of treatment? @ -No Exacerbation, Progression, or Severe Exacerbation? @ -No Poses a threat to life or bodily function? How? (Chest pain, [place], [place], pneumonia, PE, COPD, DKA, ARF, appy, cholecystitis, CVA, Diverticulitis, Homicidal, Suicidal, threat to staff... and all critical care pts) @ -No Disposition Clinical Impression: Back pain Disposition: HOME SELF-CARE Condition: Good Instructions (If sedation given, give patient instructions): Acute Low Back Pain (ED) Additional Instructions: Please return to the Emergency Department if symptoms worsen or any other concerns. Prescriptions: Baclofen 10 mg PO TID PRN #12 tab PRN Reason: Pain Ibuprofen [Motrin] 600 mg PO Q8HR PRN #30 tab PRN Reason: Pain Is patient prescribed a controlled substance at d/c from ED?: No Referrals: Jese Ann [Primary Care Provider] - 1-2 days Time of Disposition: 13:13
[2023-07-04] MEDS ORDERED: ORPHENADRINE 30 MG/ML 2 ML VIAL IVP STA (11:52)
--- NOTE | 2023-07-04 12:35 | XR ---
EXAM TYPE: LUMBAR SPINE X RAY SERIES COMPARISON: NONE HISTORY: Pain TECHNIQUE: 3 views are submitted. FINDINGS: Alignment is anatomic. The pedicles are intact. The transverse processes are intact. There is no s pondylolysis or spondylolisthesis. Spina bifida occulta sacrococcygeal junction. IMPRESSION: 1. No acute process. If there is concern for disc herniation correlate with MRI.
[2023-07-04 13:31] VITALS: BP 112/72; PULSE 79; TEMP 98
== END 2023-07-04 13:29 | disposition home or self-care (01) ==
LOC: EC 10:50
DX: M54.9 Dorsalgia, unspecified (principal); F90.9 Attention-deficit hyperactivity disorder, unspecified type; F41.0 Panic disorder [episodic paroxysmal anxiety]; F17.200 Nicotine dependence, unspecified, uncomplicated; F12.90 Cannabis use, unspecified, uncomplicated; Z79.899 Other long term (current) drug therapy
CPT/HCPCS: 72100; 99284; 96374; 96372; J2360; J1885